=== PATIENT | male | born 1965 | race Caucasian/White ===

== ENCOUNTER 2017-04-01 10:05 | Emergency (ER) | payer OTHER, MEDICAID ==
[~2017-04-01] VITALS: Ht 182.9 cm; Wt 104.3 kg
--- NOTE | 2017-04-01 10:30 | NUR ---
Anthony desir in ED - 04/01/17 at 1118 by LORI TIFFANY GALE FROM [facility] REPORTED ALCOHOL INTOXICATION, NAD NOTED, VSS, PT PUT ON MONITOR. WAITING FOR MD DIXON
[2017-04-01 10:33] LABS: BASOPHILS % (AUTO) 0.7 % (0.0-2.0); EOSINOPHILS # (AUTO) 0.1 /CMM (0.0-0.7); EOSINOPHILS % (AUTO) 1.9 % (0.0-6.0); HEMATOCRIT 44 % (39-51); HEMOGLOBIN 14.7 g/dL (13.5-17.5); LYMPHOCYTES # (AUTO) 1.9 /CMM (0.8-4.8); LYMPHOCYTES % (AUTO) 27.5 % (20.0-44.0); MEAN CORPUSCULAR HEMOGLOBIN 34 PG (26.0-33.0); MEAN CORPUSCULAR HGB CONC 33 g/dl (31.0-36.0); MEAN CORPUSCULAR VOLUME 101 fL (80-96); MONOCYTES # (AUTO) 0.7 /CMM (0.1-1.30); MONOCYTES % (AUTO) 10.4 % (2.0-12.0); NEUTROPHILS # (AUTO) 4.4 /CMM (1.8-8.9); NEUTROPHILS % (AUTO) 59.5 % (43.0-81.0); PLATELET COUNT (AUTO) 188 /CMM (150-450); RDW COEFFICIENT OF VARIATION 14.1 (11.5-15.0); RED BLOOD CELL COUNT(AUTO) 4.38 MIL/uL (4.5-6.0); WHITE BLOOD COUNT (AUTO) 7.1 K/uL (4.3-11.0)
[2017-04-01 10:55] LABS: POTASSIUM 3.3 mmol/L (3.5-5.1)
[2017-04-01 10:56] LABS: CALCIUM, SERUM 7.8 mg/dL (8.5-10.1); CREATININE 0.8 mg/dL (0.6-1.3)
--- NOTE | 2017-04-01 11:00 | NUR ---
TIFFANY RA FROM [facility] REPORTED ALCOHOL INTOXICATION, NAD NOTED, VSS, PT PUT ON MONITOR. WAITING FOR MD DIXON
[2017-04-01 11:03] LABS: ALBUMIN 3.4 g/dL (3.4-5.0); BILIRUBIN,DIRECT 0.1 mg/dL (0.0-0.2); BILIRUBIN,TOTAL 0.3 mg/dL (0.2-1.0)
[2017-04-01 13:31] LABS: APPEARANCE,URINE Clear (CLEAR); BILIRUBIN,URINE Negative (NEGATIVE); BLOOD, URINE Large Ery/uL (NEGATIVE); COLOR,URINE Yellow (YELLOW); KETONES,URINE Negative (NEGATIVE); LEUKOCYTE ESTERASE ,URINE Negative (NEGATIVE); NITRITE, URINE Negative (NEGATIVE); PH,URINE 5.5 (5.0-8.0); PROTEIN,URINE Negative (NEGATIVE); UGLUCOSE Negative (NEGATIVE); UROBILINOGEN,URINE 0.2 EU/dL (0.2)
[2017-04-01 13:47] LABS: BACTERIA,URINE Rare /HPF (None Seen); SQUAMOUS EPITHELIAL CELL,UR Rare /HPF (None Seen)
--- NOTE | 2017-04-01 14:05 | NUR ---
Patient is resting comfortably in bed with eyes closed. Easily aroused. VSS
[2017-04-01 15:02] VITALS: BP 112/78
--- NOTE | 2017-04-01 15:03 | NUR ---
Patient discharged to home in stable condition. Written and verbal after care instructions given. Patient verbalizes understanding of instruction.
[2017-04-02] MEDS ORDERED: TRAZ-144 PO (14:38)
[2017-04-02] MEDS ORDERED: EMTR1TAB17 PO (14:38)
[2017-04-02] MEDS ORDERED: RITO100T PO (14:38)
[2017-04-02] MEDS ORDERED: GABA-534 PO (14:38)
[2017-04-02] MEDS ORDERED: MULT-24 PO (14:38)
[2017-04-02] MEDS ORDERED: OLAN20TA3 PO (14:38)
[2017-04-02] MEDS ORDERED: CYAN10006 IM (14:38)
[2017-04-02] MEDS ORDERED: DARU800T PO (14:38)
[2017-04-02] MEDS ORDERED: ESCI10TA PO (14:38)
[2017-04-02] MEDS ORDERED: BUPR300T54 PO (14:38)
[2017-04-02] MEDS ORDERED: LITH300T3 PO (14:38)
[2017-04-02] MEDS ORDERED: SENN-134 PO (14:38)
== END 2017-04-01 15:04 | disposition home or self-care (01) ==
LOC: ER 10:10
DX: F10.129 Alcohol abuse with intoxication, unspecified (principal)
CPT/HCPCS: 36415; 80048-TC; 80076-TC; 80305; 81000-TC; 85025-TC; A4606; G0480; Z7610

== ENCOUNTER 2017-04-02 | Inpatient (IN) | payer OTHER ==
[~2017-04-02] VITALS: Ht 172.7 cm; Wt 90.7 kg
--- NOTE | 2017-04-02 00:25 | NUR ---
PT BIBRA C/O CHORNIC BACK PAIN, ADMITS TO ETOH DRINKING. PT AOX3 RR EVEN AND UNLABORED. NO SOB NOTED. NAD NOTED. NO NVD AT THIS TIME. PT PLACED ON MONITOR WAITING FOR MD DIXON. PT NOTED WITH ABRASIONS OF FACE/BRIDGE OF NOSE.
--- NOTE | 2017-04-02 00:35 | NUR ---
PT STATES + SI - HI " I WANT TO JUMP IN FRONT OF A CAR" PT PLACED ON SAFETY PRECAUTIONS. PT CALM AND COOPERATIVE AT THIS TIME.
[2017-04-02 00:46] LABS: BASOPHILS % (AUTO) 0.4 % (0.0-2.0); EOSINOPHILS # (AUTO) 0.1 /CMM (0.0-0.7); EOSINOPHILS % (AUTO) 1.4 % (0.0-6.0); HEMATOCRIT 43 % (39-51); HEMOGLOBIN 14.4 g/dL (13.5-17.5); LYMPHOCYTES # (AUTO) 1.3 /CMM (0.8-4.8); LYMPHOCYTES % (AUTO) 21.3 % (20.0-44.0); MEAN CORPUSCULAR HEMOGLOBIN 34 PG (26.0-33.0); MEAN CORPUSCULAR HGB CONC 34 g/dl (31.0-36.0); MEAN CORPUSCULAR VOLUME 101 fL (80-96); MONOCYTES # (AUTO) 0.6 /CMM (0.1-1.30); MONOCYTES % (AUTO) 9.1 % (2.0-12.0); NEUTROPHILS # (AUTO) 4.2 /CMM (1.8-8.9); NEUTROPHILS % (AUTO) 67.8 % (43.0-81.0); PLATELET COUNT (AUTO) 197 /CMM (150-450); RDW COEFFICIENT OF VARIATION 14.3 (11.5-15.0); RED BLOOD CELL COUNT(AUTO) 4.22 MIL/uL (4.5-6.0); WHITE BLOOD COUNT (AUTO) 6.2 K/uL (4.3-11.0)
[2017-04-02 01:01] LABS: CALCIUM, SERUM 8.2 mg/dL (8.5-10.1); CREATININE 0.8 mg/dL (0.6-1.3)
[2017-04-02 01:06] LABS: ALBUMIN 3.5 g/dL (3.4-5.0); BILIRUBIN,DIRECT 0.1 mg/dL (0.0-0.2); BILIRUBIN,TOTAL 0.3 mg/dL (0.2-1.0); TOTAL PROTEIN, SERUM 6.9 g/dL (6.4-8.2)
[2017-04-02 01:09] LABS: SALICYLATE 0.8 mg/dL (2.8-20.0)
[2017-04-02] MEDS ORDERED: IV NS 0.9% 1,000 ML BAG IV ONE ×2 (02:00→12:30)
[2017-04-02] MEDS ORDERED: FOLIC ACID 1 MG TABLET PO ONE (02:00)
[2017-04-02] MEDS ORDERED: THIAMINE HCL 100 MG TABLET PO ONE (02:00)
--- NOTE | 2017-04-02 02:02 | NUR ---
PT RETURNED FROM CT.
[2017-04-02] MEDS ORDERED: THIAMINE HCL 100 MG TABLET ONE (02:14)
[2017-04-02] MEDS ORDERED: FOLIC ACID 1 MG TABLET ONE (02:14)
--- NOTE | 2017-04-02 02:23 | NUR ---
PT APPEARS COMFORTABLE AND RESTING. ABLE TO MADE NEEDS KNOWN.
--- NOTE | 2017-04-02 04:50 | NUR ---
URINE COLLECTED. CALLED LAB FOR TILE TRIMMER.
[2017-04-02 05:14] LABS: APPEARANCE,URINE CLEAR (CLEAR); BILIRUBIN,URINE NEGATIVE (NEGATIVE); BLOOD, URINE TRACE-INTA Ery/uL (NEGATIVE); COLOR,URINE YELLOW (YELLOW); KETONES,URINE NEGATIVE (NEGATIVE); LEUKOCYTE ESTERASE ,URINE NEGATIVE (NEGATIVE); NITRITE, URINE NEGATIVE (NEGATIVE); PH,URINE 5.5 (5.0-8.0); PROTEIN,URINE TRACE mg/dl (NEGATIVE); UGLUCOSE NEGATIVE (NEGATIVE); UROBILINOGEN,URINE 0.2 EU/dL (0.2)
[2017-04-02 05:19] LABS: BACTERIA,URINE None seen /HPF (None Seen); RBC,URINE 0-2 /HPF (0-2); WBC,URINE 0-2 /HPF (0-3)
[2017-04-02 05:20] LABS: SQUAMOUS EPITHELIAL CELL,UR Rare /HPF (None Seen); URINE AMORPHOUS URATE Rare /HPF (None Seen)
--- NOTE | 2017-04-02 06:26 | NUR ---
Patient is resting comfortably in bed with eyes closed. Easily aroused. VSS
--- NOTE | 2017-04-02 07:11 | NUR ---
REPORT GIVEN TO NILE MCKOY FOR ZENOBIA.
--- NOTE | 2017-04-02 11:13 | NUR ---
CALLED ART FOR PSYCH EVAL, ETA WITHIN THE HOUR
--- NOTE | 2017-04-02 12:00 | NUR ---
ART AT BEDSIDE FOR PSYCH EVAL
[2017-04-02] MEDS ORDERED: CHLORDIAZEPOXIDE HCL 25 MG CAPSULE PO ONE (12:30)
[2017-04-02] MEDS ORDERED: LORAZEPAM INJ 2 MG/ML VIAL IVP ONE (12:30)
[2017-04-02] MEDS ORDERED: CHLORDIAZEPOXIDE HCL 25 MG CAPSULE ONE (12:31)
--- NOTE | 2017-04-02 12:34 | NUR ---
DR.RUTHERFORD TAMAR [employer] FINANCE MANAGER
--- NOTE | 2017-04-02 12:34 | NUR ---
CALLED NURSING SUP. FOR [facility] BED
[2017-04-02] MEDS ORDERED: LORAZEPAM INJ 2 MG/ML VIAL ONE (12:40)
--- NOTE | 2017-04-02 12:48 | NUR ---
REPORT GIVEN TO PERLA DOWD FOR CONTINUITY OF CARE IN [facility]
[2017-04-02] MEDS ORDERED: MAGNESIUM HYDROXIDE 30 ML UDC PO PRN (13:00)
[2017-04-02] MEDS ORDERED: Z GUARD REMEDY 2 OZ OINT TP PRN (13:00)
[2017-04-02] MEDS ORDERED: ONDANSETRON HCL/PF 4 MG/2 ML VIAL IVP PRN (13:00)
[2017-04-02] MEDS ORDERED: ACETAMINOPHEN 325 MG TABLET PO PRN (13:00)
[2017-04-02] MEDS ORDERED: MAG HYDROX/AL HYDROX/SIMETH 30 ML UDC PO PRN (13:00)
--- NOTE | 2017-04-02 13:15 | NUR ---
CANINE DEPUTY ADMITTING NOTES: REC'D REPORT FROM HEAD OF ENGLISH WILBER. PT ADMITTED TO ROOM 115/2, TRANSFERRED VIA GURNEY, ACCOMPANIED BY SHERICE HEAD OF ENGLISH. PT IS A/O X 3, DENIES ANY PAIN/DISCOMFORT, NOTED TO BE SHAKING D/T ALCOHOL WITHDRAWAL. PLACED ON TELEMONITOR, SR W/ HR AT 78 BPM. PT IS AMBULATORY W/ ASSISTANCE. HAS R AC G20, PL, W/ NS 1L WIDE OPEN, PATENT & INTACT W/ NO S/SX OF INFECTION/INFILTRATION NOTED. WOUND ASSESSMENT DONE. PHOTOS TAKEN & PLACED IN CHART. BELONGINGS CHECKED AND PLACED AT BEDSIDE. PT ORIENTED TO ROOM. PROVIDED COMFORT & SAFETY MEASURES. BED KEPT LOW & IN LOCKED POS. CALL LIGHT PLACED W/IN REACH. PT WILL MONITOR FOR ANY S/SX OF ETOH WITHDRAWAL AND POSS SUICIDAL ATTEMPTS. WILL MONITOR CLOSELY.
[2017-04-02] MEDS: FOLIC ACID 1 MG TABLET PO SCH (14:13)
[2017-04-02] MEDS: THIAMINE HCL 100 MG TABLET PO SCH (14:13)
[2017-04-02] MEDS: IV NS 0.9% 1,000 ML IV SCH ×2 (14:13→23:48)
[2017-04-02] MEDS ORDERED: EMTR1TAB17 PO (14:38)
[2017-04-02] MEDS ORDERED: RITO100T PO (14:38)
[2017-04-02] MEDS ORDERED: BUPR300T54 PO (14:38)
[2017-04-02] MEDS ORDERED: TRAZ-144 PO (14:38)
[2017-04-02] MEDS ORDERED: OLAN20TA3 PO (14:38)
[2017-04-02] MEDS ORDERED: DARU800T PO (14:38)
[2017-04-02] MEDS ORDERED: MULT-24 PO (14:38)
[2017-04-02] MEDS ORDERED: LITH300T3 PO (14:38)
[2017-04-02] MEDS ORDERED: GABA-534 PO (14:38)
[2017-04-02] MEDS ORDERED: CYAN10006 IM (14:38)
[2017-04-02] MEDS ORDERED: ESCI10TA PO (14:38)
[2017-04-02] MEDS ORDERED: SENN-134 PO (14:38)
[2017-04-02 16:00] VITALS: BP_SYST 116; BP_SYST 126; BP_DIAS 78; BP_DIAS 81
[2017-04-02] MEDS: LORAZEPAM INJ 2 MG/ML VIAL IV SCH ×2 (17:17→23:48)
[2017-04-02] MEDS: LITHIUM CARBONATE (300 MG CAP) 300 MG CAPSULE PO SCH (17:49)
[2017-04-02] MEDS ORDERED: SENNOSIDES/DOCUSATE SODIUM 1 TAB TABLET PO PRN (18:00)
--- NOTE | 2017-04-02 18:41 | NUR ---
RN CLOSING NOTES: NO ACUTE CHANGES NOTED W/IN SHIFT. PT IS A/O X3, NOT IN ANY DISTRESS. NO SUICIDAL IDEATION NOTED. R AC G20 PL KEPT PATENT & INTACT W/ NO S/SX OF INFECTION. KEPT WELL RESTED. NEEDS ATTENDED. CALL LIGHT PLACED W/IN REACH. BED KEPT LOW & IN LOCKED POS. WILL ENDORSE TO PM RN FOR ZENOBIA.
[2017-04-02 20:00] VITALS: BP 108/53
[2017-04-02] MEDS: HYDROCODONE/APAP 5/325MG 1 EACH TABLET PO PRN (21:13)
[2017-04-02] MEDS ORDERED: OLANZAPINE 10 MG TABLET PO SCH (22:00)
[2017-04-02] MEDS ORDERED: ZOLPIDEM TARTRATE 5 MG TABLET PO PRN (22:00)
[2017-04-02] MEDS ORDERED: TRAZODONE 50 MG TABLET PO SCH (22:00)
[2017-04-02] MEDS ORDERED: ESCITALOPRAM OXALATE (10 MG) 10 MG TABLET PO SCH (22:00)
[2017-04-03] VITALS: BP 131/74
[2017-04-03 04:00] VITALS: BP 115/62
[2017-04-03] MEDS: LORAZEPAM INJ 2 MG/ML VIAL IV SCH ×2 (06:32→13:24)
--- NOTE | 2017-04-03 07:00 | NUR ---
RN NOTES RECEIVED PT ON BED, A/Ox3, COOPERATIVE , DENIES ANY SUICIDAL ATTEMPT OR IDEATION AT THIS TIME , RESPIRATION EVEN AND UNLABORED, ON RA , ON SOB NOTED, ON TELE SR IN 60'S , R HAND IV SITE CDI WITH NS AT 100CC/HR RUNNING , SR UP x3, CALL LIGHT WITHIN EASY REACH, BED LOCKED AND IN LOWEST POSITION, CONTINUE TO MONITOR PT CLOSELY AND NOTIFY MD FOR ANY SIGNIFICANT CHANGES.
--- NOTE | 2017-04-03 07:15 | NUR ---
END OF SHIFT SUMMERY: PT IS A&O X 3. ON DESIGN INTERN,NSR. ON ROOM AIR, SATURATING WELL. PT COMPLAINED OF BACK PAIN, NORCO WAS GIVEN PRESCRIBED. PT HAD MULTIPLE EPISODES OF LIGHT TREMORS, ATIVAN WAS GIVEN PRESCRIBED WITH RELIEF.NO ACUTE DISTRESS NOTED. NEW IV ACCESS IS STARED ON THE RIGHT WRIST # 22. WILL ENDORSE PT TO AM NURSE TO FOLLOW UP.
[2017-04-03 07:42] LABS: BASOPHILS % (AUTO) 0.3 % (0.0-2.0); EOSINOPHILS # (AUTO) 0.1 /CMM (0.0-0.7); EOSINOPHILS % (AUTO) 2.2 % (0.0-6.0); HEMATOCRIT 37 % (39-51); HEMOGLOBIN 13.1 g/dL (13.5-17.5); LYMPHOCYTES # (AUTO) 0.9 /CMM (0.8-4.8); LYMPHOCYTES % (AUTO) 27.7 % (20.0-44.0); MEAN CORPUSCULAR HEMOGLOBIN 36 PG (26.0-33.0); MEAN CORPUSCULAR HGB CONC 35 g/dl (31.0-36.0); MEAN CORPUSCULAR VOLUME 101 fL (80-96); MONOCYTES # (AUTO) 0.6 /CMM (0.1-1.30); MONOCYTES % (AUTO) 16.4 % (2.0-12.0); NEUTROPHILS # (AUTO) 1.8 /CMM (1.8-8.9); NEUTROPHILS % (AUTO) 53.4 % (43.0-81.0); PLATELET COUNT (AUTO) 119 /CMM (150-450); RDW COEFFICIENT OF VARIATION 13.9 (11.5-15.0); RED BLOOD CELL COUNT(AUTO) 3.66 MIL/uL (4.5-6.0); WHITE BLOOD COUNT (AUTO) 3.4 K/uL (4.3-11.0)
[2017-04-03 08:00] VITALS: BP 122/78
[2017-04-03 08:02] LABS: CALCIUM, SERUM 7.9 mg/dL (8.5-10.1); CREATININE 0.8 mg/dL (0.6-1.3); MAGNESIUM 1.8 mg/dL (1.8-2.4); PHOSPHORUS 2.5 mg/dL (2.5-4.9); POTASSIUM 3.6 mmol/L (3.5-5.1)
[2017-04-03] MEDS: FOLIC ACID 1 MG TABLET PO SCH (08:18)
[2017-04-03] MEDS: THIAMINE HCL 100 MG TABLET PO SCH (08:18)
[2017-04-03] MEDS: LITHIUM CARBONATE (300 MG CAP) 300 MG CAPSULE PO SCH (08:18)
[2017-04-03] MEDS: GABAPENTIN 300 MG CAPSULE PO SCH ×2 (08:25→13:24)
[2017-04-03] MEDS ORDERED: EMTRICITABINE 200 MG CAPSULE PO SCH (09:00)
[2017-04-03] MEDS ORDERED: BUPROPION XL 150 MG TAB.ER.24 PO SCH (09:00)
[2017-04-03] MEDS ORDERED: MULTIVITAMINS,THERAGRAN 1 UDTAB TABLET PO SCH (09:00)
[2017-04-03] MEDS ORDERED: RITONAVIR 100 MG CAPSULE PO SCH (09:00)
[2017-04-03] MEDS ORDERED: TENOFOVIR DISOPROXIL FUMARATE 300 MG TABLET PO SCH (09:00)
[2017-04-03] MEDS ORDERED: Medication Not On Formulary EA (Emtricitabine/Tenofov Alafenam (Descovy 200-25 mg Tablet PO SCH (09:00)
[2017-04-03 09:48] LABS: EOSINOPHILS % (MANUAL) 2 % (0-4); LYMPHOCYTES % (MANUAL) 31 % (16-48); MONOCYTES % (MANUAL) 14 % (0-11.0); NEUTROPHILS % (MANUAL) 53 (42-76)
[2017-04-03] MEDS: IV NS 0.9% 1,000 ML IV SCH (10:40)
[2017-04-03 12:00] VITALS: BP 104/54
--- NOTE | 2017-04-03 13:41 | NUR ---
RN NOTES PT STATED HE GETS HIS PREZISTA MEDICATION FROM [facility] . CALL MAKE TO [facility] AND NOTICE THAT THE CLINIC IS CLOSED TODAY , DR MORA NOTIFIED.
--- NOTE | 2017-04-03 14:50 | NUR ---
RN NOTES FOUND PT IN ROOM , DRESSED AND WANTS TO GO TO HIS MOM HOUSE , PT PULLED HIS IV OUT AND / STATED HIS IS AT [facility] AND TODAY IS WEDNESDAY AND HAS TO GO TO BANK AND HAS COURT ON WEDNESDAY . DR WILSON AND DR Anny MORA NOTIFIED, CRISIS TEAM NOTIFIED TO EVALUATE PT PER MD ORDER.
[2017-04-03] MEDS: HYDROCODONE/APAP 5/325MG 1 EACH TABLET PO PRN (15:22)
--- NOTE | 2017-04-03 15:40 | NUR ---
RN NOTES PT PAVEL ANY SUICIDAL ATTEMPT AND IDEATION.
--- NOTE | 2017-04-03 15:40 | NUR ---
RN NOTES CHARGE NURSE NOTIFIED THAT PT WANTS TO LEAVE AMA AND REFUSED TO WAIT FOR CRISIS TEAM .PT STATED THAT WILL RAN OUT OF THE HOSPITAL SOON AND NO ONE CAN STOP HIM. PT IS ALERT/ORIENTED x4 AT THIS TIME .
--- NOTE | 2017-04-03 15:56 | NUR ---
RN NOTES PT REFUSED TO WAIT FOR THE CRISIS TEAM TO EVALUATE HIM, PT RAN OUT OF THE FLOOR TO MAIN ENTRANCE , SECURITY AND NURSING MATERIAL CLERK NOTIFIED , PT STATED IS FEELING FINE, AND HAS NO SUICIDAL ATTEMPTS AND IDEATIONS . HE SAID HE WAS NOT FEELING WELL WHEN HE CAME TO HOSPITAL BUT HE FEELS FINE NOW. PT GOT TURNED BACK TO HIS ROOM BY SERVICE STATION CASHIER . SIGNED THE AMA FORM AND HIS BELONGING LIST. REFUSED TO HAVE SKIN PHOTO TAKEN. PT STATED THAT HE WILL TAKE THE BUS AND GO TO HIS MOM'S HOUSE . PT LEFT THE FLOOR TO MAIN ENTRANCE ACCOMPANIED BY SERVICE STATION CASHIER.
--- NOTE | 2017-04-03 15:58 | NUR ---
RN NOTES SECURITY UNABLE TO KEEP THE PT IN THE HOSPITAL . DR CENTENO AND DR MORA NOTIFIED .
== END 2017-04-03 15:54 | disposition left against medical advice (07) | DRG 894 ==
LOC: ER 00:02 → TELE-TD 12:48 → TELE1 13:27 → MEDSG1 04-03 09:55
PROVIDERS: ADMIT Internal Medicine; ATTEND Internal Medicine
DX: F10.231 Alcohol dependence with withdrawal delirium (principal); R45.851 Suicidal ideations; F10.221 Alcohol dependence with intoxication delirium; I10 Essential (primary) hypertension; F31.9 Bipolar disorder, unspecified; Z59.0 Homelessness; Z79.899 Other long term (current) drug therapy; F29 Unspecified psychosis not due to a substance or known physiological condition; F41.9 Anxiety disorder, unspecified; F17.200 Nicotine dependence, unspecified, uncomplicated; G89.29 Other chronic pain; M47.816 Spondylosis without myelopathy or radiculopathy, lumbar region; Y90.8 Blood alcohol level of 240 mg/100 ml or more; T51.0X1A Toxic effect of ethanol, accidental (unintentional), initial encounter
CPT/HCPCS: 36415; 72110-TC; 80048-TC; 80076-TC; 80305; 81000-TC; 83735-TC; 84100-TC; 85025-TC; 87081-TC; A4606; G0480; J2060; J7030; Z7610